=== PATIENT | male | born 1985 | race Caucasian/White ===

== ENCOUNTER 2018-11-20 18:14 | Emergency (ER) | payer OTHER ==
[2018-11-20 18:25] VITALS: BP 140/76
[2018-11-20] MEDS ORDERED: OSELTAMIVIR 75 MG CAPSULE PO STA (19:18)
--- NOTE | 2018-11-20 19:22 | ED Physician Documentation ---
PD HPI PED ILLNESS - Stated complaint Stated Complaint: FLU LIKE SYMPTOMS - Chief complaint Chief Complaint: Heent - History obtained from History obtained from: Patient - History of Present Illness Timing - onset: Today (He abruptly became sick today with fever, slight cough, and severe body aches.) Review of Systems Constitutional: reports: Fever, Chills, Myalgias, Fatigue Nose: denies: Rhinorrhea / runny nose Respiratory: reports: Cough GI: denies: Abdominal Pain, Nausea, Vomiting PD PAST MEDICAL HISTORY - Past Medical History Past Medical History: Yes GI: GERD - Past Surgical History Past Surgical History: No - Present Medications Home Medications: Ambulatory Orders Medication Instructions Recorded Confirmed Omeprazole 20 mg PO 11/20/18 11/20/18 Oseltamivir [Tamiflu] 75 mg PO BID #10 capsule 11/20/18 - Allergies Allergies/Adverse Reactions: Allergies Allergy/AdvReac Type Severity Reaction Status Date / Time tetracycline Allergy Hives Verified 11/20/18 18:26 - Social History Does the pt smoke?: No Smoking Status: Never smoker Does the pt drink ETOH?: No Does the pt have substance abuse?: No - Immunizations Immunizations are current?: Yes PD ED PE NORMAL - Vitals Vital signs reviewed: Yes - General General: Alert and oriented X 3, No acute distress - HEENT HEENT: PERRL, EOMI, Pharynx benign - Neck Neck: Supple, no meningeal sign, No bony TTP - Cardiac Cardiac: RRR, No murmur - Respiratory Respiratory: Clear bilaterally - Abdomen Abdomen: Non tender - Derm Derm: No rash - Neuro Neuro: Alert and oriented X 3, Normal speech Results - Vitals Vitals: Vital Signs - 24 hr 11/20/18 18:23 Temperature 37.0 C Heart Rate 79 Respiratory 14 Rate Blood Pressure 140/76 H O2 Saturation 99 Oxygen O2 Source Room air - Labs Labs: Laboratory Tests 11/20/18 18:30 Influenza A (Rapid) Negative Influenza B (Rapid) Negative PD MEDICAL DECISION MAKING - ED course ED course: Given the out ongoing flu outbreak and typical symptoms I suspect the flu test is false negative. Departure - Departure Disposition: 01 Home, Self Care Clinical Impression: Influenza A Condition: Good Record reviewed to determine appropriate education?: Yes Instructions: Medication: Tamiflu (Oseltamivir), ED Flu Prescriptions: Oseltamivir [Tamiflu] 75 mg PO BID #10 capsule Comments: Return in 5 days if not better, or if worse any time. Forms: Activity restrictions
== END 2018-11-20 19:24 | disposition home or self-care (01) ==
LOC: ED 18:14
DX: J10.89 Influenza due to other identified influenza virus with other manifestations (principal)
CPT/HCPCS: 87275; 87276; 99283; A9270

== ENCOUNTER 2019-02-07 08:41 | Emergency (ER) | payer OTHER ==
[2019-02-07 09:09] VITALS: BP 137/94
[2019-02-07] MEDS ORDERED: KETOROLAC 60 MG/2 ML VIAL IM STA (10:14)
[2019-02-07] MEDS ORDERED: CHERRY SYRUP 10 ML UDC PO ONE (10:14)
[2019-02-07] MEDS ORDERED: DEXAMETHASONE 10 MG/ML VIAL PO STA (10:14)
--- NOTE | 2019-02-07 10:17 | ED Physician Documentation ---
PD HPI BACK PAIN - Stated complaint Stated Complaint: LOWER BACK PX - Chief complaint Chief Complaint: Back Pain - History obtained from History obtained from: Patient - History of Present Illness Timing - onset: Yesterday Timing - duration: Days (1) Timing - details: Abrupt onset, Still present Location: Lower, Left Quality: Pain, Spasm, Sharp, Similar to prior episodes Associated symptoms: No: Fever, Weakness, Numbness, Incontinent of urine, Unable to urinate, Hematuria, Incontinent of stool Improves with: Rest, Position Worsened by: Movement, Other (walking) Contributing factors: Other (slipped on a deck yesterday and caught himself jarring his back) Similar symptoms before: Diagnosis (lumbar strain) Recently seen: Not recently seen - Additional information Additional information: 33-year-old male slipped on his deck yesterday and [place] himself he has pain in his left lower back that radiates down the left side when he bears weight. He has had similar symptoms previously. Review of Systems Constitutional: denies: Fever, Chills Ears: denies: Ear pain Throat: denies: Sore throat Respiratory: denies: Cough GI: denies: Vomiting : denies: Dysuria, Frequency Skin: denies: Rash Musculoskeletal: reports: Back pain. denies: Neck pain, Extremity pain PD PAST MEDICAL HISTORY - Past Medical History GI: GERD - Past Surgical History Past Surgical History: No - Present Medications Home Medications: Ambulatory Orders Medication Instructions Recorded Confirmed Omeprazole 20 mg PO 11/20/18 11/20/18 Oseltamivir [Tamiflu] 75 mg PO BID #10 capsule 11/20/18 Cyclobenzaprine [Flexeril] 10 mg PO TID PRN #20 tablet 02/07/19 Hydrocodone/Acetaminophen 1 - 2 each PO Q6H PRN #14 tablet 02/07/19 [Hydrocodon-Acetaminophen 5-325] - Allergies Allergies/Adverse Reactions: Allergies Allergy/AdvReac Type Severity Reaction Status Date / Time tetracycline Allergy Hives Verified 02/07/19 09:40 - Social History Does the pt smoke?: No Smoking Status: Never smoker Does the pt drink ETOH?: No ETOH Use: Beer Does the pt have substance abuse?: No - Immunizations Immunizations are current?: Yes PD ED PE NORMAL - Vitals Vital signs reviewed: Yes (hypertensive ) - General General: Alert and oriented X 3, No acute distress, Well developed/nourished - HEENT HEENT: Atraumatic, PERRL, EOMI - Respiratory Respiratory: No respiratory distress - Back Back: No CVA TTP, No spinal TTP, Other (point tenderness to the left lower lumbar spine extending into the sciatic notch. 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 He is admitted administered dexamethasone 10 orally and Toradol [address] will place him on some pain medication and muscle relaxant. Departure - Departure Disposition: 01 Home, Self Care Clinical Impression: Sciatica Qualifiers: Laterality: left Qualified Code(s): M54.32 - Sciatica, left side Condition: Stable Instructions: ED Sciatica Follow-Up: [facility] [Provider Group] Prescriptions: Cyclobenzaprine [Flexeril] 10 mg PO TID PRN #20 tablet PRN Reason: Spasms Hydrocodone/Acetaminophen [Hydrocodon-Acetaminophen 5-325] 1 - 2 each PO Q6H PRN #14 tablet PRN Reason: pain
== END 2019-02-07 10:26 | disposition home or self-care (01) ==
LOC: ED 08:41
DX: M54.42 Lumbago with sciatica, left side (principal); X50.1XXA Overexertion from prolonged static or awkward postures, initial encounter; Y92.008 Other place in unspecified non-institutional (private) residence as the place of occurrence of the external cause
CPT/HCPCS: 96372; 99283

== ENCOUNTER 2019-02-09 13:55 | Emergency (ER) | payer OTHER ==
[2019-02-09] MEDS ORDERED: predniSONE 20 MG TABLET PO STA (14:20)
--- NOTE | 2019-02-09 14:47 | ED Physician Documentation ---
PD HPI BACK PAIN - Stated complaint Stated Complaint: BACK PAIN/NUMBNESS BILAT FEET AND R HAND - Chief complaint Chief Complaint: Back Pain - History obtained from History obtained from: Patient - History of Present Illness Timing - onset: How many days ago (2) Timing - duration: Days (2) Timing - details: Abrupt onset Pain level max: 8 Pain level now: 8 Location: Lower, Right, Left Quality: Pain, Spasm, Similar to prior episodes Associated symptoms: Numbness (numbness and shooting pain down B legs to the toes.). No: Fever, Weakness, Incontinent of urine, Unable to urinate, Hematuria, Incontinent of stool Improves with: Rest Worsened by: Movement Contributing factors: Other (states slipped and [place] his back a few days ago. Not improving at home.) Recently seen: Emergency Dept (for same) - Additional information Additional information: also states the his R hand, nose and lips tingled today. No loss of bowel or bladder control. no difficulty urinating. Review of Systems Constitutional: denies: Fever, Chills Respiratory: denies: Cough GI: denies: Vomiting Skin: denies: Rash Musculoskeletal: denies: Neck pain PD PAST MEDICAL HISTORY - Past Medical History Past Medical History: Yes GI: GERD - Past Surgical History Past Surgical History: No - Present Medications Home Medications: Ambulatory Orders Medication Instructions Recorded Confirmed Omeprazole 20 mg PO DAILY 11/20/18 02/09/19 Cyclobenzaprine [Flexeril] 10 mg PO TID PRN #20 tablet 02/07/19 02/09/19 Hydrocodone/Acetaminophen 1 - 2 each PO Q6H PRN #14 tablet 02/07/19 02/09/19 [Hydrocodon-Acetaminophen 5-325] Meloxicam [Mobic] 15 mg PO DAILY PRN #20 tablet 02/09/19 predniSONE [Deltasone] 10 mg PO [id number] #42 tab 02/09/19 - Allergies Allergies/Adverse Reactions: Allergies Allergy/AdvReac Type Severity Reaction Status Date / Time tetracycline Allergy Hives Verified 02/09/19 14:01 - Living Situation Living Situation: reports: With family Living Arrangement: reports: At home - Social History Does the pt smoke?: No Smoking Status: Never smoker Does the pt drink ETOH?: No Does the pt have substance abuse?: No - Immunizations Immunizations are current?: Yes PD ED PE NORMAL - Vitals Vital signs reviewed: Yes - General General: Alert and oriented X 3, No acute distress, Well developed/nourished - HEENT HEENT: Moist mucous membranes - Neck Neck: Supple, no meningeal sign - Cardiac Cardiac: RRR, Strong equal pulses - Respiratory Respiratory: No respiratory distress, Clear bilaterally - Abdomen Abdomen: Soft, Non tender, Non distended - Back Back: Other (Midline tender to palpation L4-L5. No step-off or deformity. Also tender over the sacrum.) - Derm Derm: Warm and dry - Extremities Extremities: No deformity, Other (Normal bilateral lower extremity patellar and ankle jerk reflexes. Normal great toe extension bilaterally. no saddle anesthesia) - Neuro Neuro: Alert and oriented X 3, No motor deficit, Other (Decreased sensation on the posterior aspect of the bilateral lower extremities. Mild) - Psych Psych: Normal mood, Normal affect Results - Vitals Vitals: Vital Signs - 24 hr 02/09/19 02/09/19 13:59 15:18 Temperature 36.0 C L Heart Rate 97 85 Respiratory 20 20 Rate Blood Pressure 124/78 123/74 O2 Saturation 99 96 Oxygen O2 Source Room air - Rads (name of study) CT lumbar spine Radiology: Prelim report reviewed, EMP read contemporaneously, See rad report (normal) PD MEDICAL DECISION MAKING - ED course Complexity details: reviewed results, re-evaluated patient, considered differential (No cauda equina, no spinal epidural abscess, no fracture, no aortic dissection or evidence of aneursym rupture), d/w patient ED course: 33-year-old male with continued back pain since being seen here 2 days ago, was placed on pain medication and muscle relaxants. Was also given a one-time dose of steroid. Given his worsening symptoms, bilateral intermittent numbness to the legs, a CT was performed. This does not show any acute abnormalities. No cord compression. Patient is able to ambulate in the emergency department. Declines anything stronger for pain for home. Will place on meloxicam and a steroid taper. Patient counseled regarding signs and symptoms for which I believe and urgent re-evaluation would be necessary. Patient with good und erstanding of and agreement to plan and is comfortable going home at this time This document was made in part using voice recognition software. While efforts are made to proofread this document, sound alike and grammatical errors may occur. Departure - Departure Disposition: 01 Home, Self Care Clinical Impression: Sciatica Qualifiers: Laterality: bilateral Qualified Code(s): M54.31 - Sciatica, right side Condition: Good Instructions: ED Sciatica Follow-Up: your,doctor in 1week [Other] Prescriptions: Meloxicam [Mobic] 15 mg PO DAILY PRN #20 tablet PRN Reason: pain predniSONE [Deltasone] 10 mg PO [id number] #42 tab Comments: Continue your other medications. Return if you worsen. If you are still having problems in 1 week, you should follow-up with your doctor for an MRI. Discharge Date/Time: 02/09/19 15:19
--- NOTE | 2019-02-09 15:01 | CT Report ---
Reason: fall, back pain radiating down B LE. Procedure Date: 02/09/2019 Accession Number: [id number] / [id number] Procedure: CT - LUMBAR SPINE WO CPT Code: FULL RESULT: EXAM: CT LUMBAR SPINE WITHOUT CONTRAST EXAM DATE: 02/09/2019 02:34 PM. CLINICAL HISTORY: Fall 2 days ago, back pain radiating down bilateral lower extremities. COMPARISONS: None. TECHNIQUE: Thin-section axial images were acquired of the lumbar spine from T11 to S1 without contrast. Post-processing: Coronal and sagittal reformats. Other: None. In accordance with CT protocol optimization, one or more of the following dose reduction techniques were utilized for this exam: automated exposure control, adjustment of mA and/or KV based on patient size, or use of iterative reconstructive technique. FINDINGS: Alignment: No scoliosis or spondylolisthesis. Bones: Five [id number] lumbar vertebral bodies are present. No fractures or bone lesions. Disk Levels/Facets: T12-L1: Unremarkable. L1-L2: Unremarkable. L2-L3: Unremarkable. L3-L4: Unremarkable. L4-L5: Unremarkable. L5-S1: Unremarkable. Musculature: Normal. No fatty atrophy. Other: The visualized retroperitoneum is unremarkable. IMPRESSION: Normal lumbar spine CT. No fracture or other acute osseous abnormality. RADIA
[2019-02-09 15:19] VITALS: BP 123/74
== END 2019-02-09 15:19 | disposition home or self-care (01) ==
LOC: ED 13:55
DX: M54.41 Lumbago with sciatica, right side (principal)
CPT/HCPCS: 72131; 99283; J7512

== ENCOUNTER 2020-07-01 17:54 | Emergency (ER) | payer OTHER ==
[2020-07-01 18:00] VITALS: BP 140/87
--- NOTE | 2020-07-01 18:50 | XRAY Report ---
PROCEDURE: Shoulder 3 View RT INDICATIONS: pain/trauma TECHNIQUE: 3 views of the shoulder were acquired. COMPARISON: None. FINDINGS: Bones: No fractures or dislocations. No suspicious bony lesions. Visualized ribs appear intact. Soft tissues: No suspicious soft tissue calcifications. IMPRESSION: No acute right shoulder fracture or dislocation. Reviewed by: Matt Roman MD on 07/01/2020 6:49 PM PDT Approved by: Matt Roman MD on 07/01/2020 6:49 PM PDT Station ID: [id number]
--- NOTE | 2020-07-01 19:04 | ED Physician Documentation ---
History of Present Illness - Stated complaint Stated Complaint: RIGHT SHOULDER PX - Chief complaint Chief Complaint: Ext Problem - Additonal information Additional information: 34-year-old male presents to the emergency department for evaluation of acute right shoulder pain sustained this afternoon when he was doing a hand stand. He lost his balance and fell forward onto the right shoulder and has had pain since. No history of previous injury. Patient is right-handed Review of Systems Constitutional: reports: Reviewed and negative Eyes: reports: Reviewed and negative Ears: reports: Reviewed and negative Nose: reports: Reviewed and negative Throat: reports: Reviewed and negative Cardiac: reports: Reviewed and negative Respiratory: reports: Reviewed and negative GI: reports: Reviewed and negative Skin: reports: Reviewed and negative Musculoskeletal: reports: Joint pain ( right shoulder) Neurologic: reports: Reviewed and negative PD PAST MEDICAL HISTORY - Past Medical History Past Medical History: No GI: GERD - Past Surgical History Past Surgical History: No - Present Medications Home Medications: Ambulatory Orders Medication Instructions Recorded Confirmed Ibuprofen [Motrin] 600 mg PO Q6H PRN #30 tab 07/01/20 - Allergies Allergies/Adverse Reactions: Allergies Allergy/AdvReac Type Severity Reaction Status Date / Time tetracycline Allergy Hives Verified 07/01/20 17:59 - Social History Does the pt smoke?: No Smoking Status: Never smoker Does the pt drink ETOH?: No Does the pt have substance abuse?: No - Immunizations Immunizations are current?: Yes PD ED PE NORMAL - General General: Alert and oriented X 3, No acute distress - Extremities Extremities: No deformity, Normal ROM s pain. No: No tenderness to palpate (Mild tenderness at the right AC joint. Full range of motion with minimal pain. Negative yearganson's and empty can. No swelling or ecchymosis.) Results - Vitals Vitals: Vital Signs - 24 hr 07/01/20 17:56 Temperature 36.7 C Heart Rate 65 Respiratory 15 Rate Blood Pressure 140/87 H O2 Saturation 100 Oxygen O2 Source Room air - Rads (name of study) right shoulder Radiology: Final report received (No acute fracture or dislocation) PD MEDICAL DECISION MAKING - ED course Complexity details: reviewed results, considered differential ED course: 34-year-old male presents the emergency department with right shoulder injury sustained this afternoon when he fell after doing a hand stand. X-ray does not show any fracture or dislocation. The majority the pain is at the AC joint but no AC separation is seen. He has a very reassuring exam with no impingement signs. This likely a contusion. I did recommend that he take ibuprofen with food 3 times a day for the next week. Follow-up with primary care provider if not improving as anticipated Departure - Departure Disposition: Home, Self Care Clinical Impression: Right shoulder pain Qualifiers: Chronicity: acute Qualified Code(s): M25.511 - Pain in right shoulder Condition: Stable Record reviewed to determine appropriate education?: Yes Prescriptions: Ibuprofen [Motrin] 600 mg PO Q6H PRN #30 tab PRN Reason: Pain Comments: The x-ray of your shoulder is normal. On my exam today you do not show signs of having a rotator cuff tear. I do recommend that you avoid handstands for the next week or 2. I also recommend that you take ibuprofen with food 3 times a day for the next 5 to 7 days. With a simple contusion or sprain of the shoulder I would expect you to be pain-free in about 2 weeks. If not improving please see your primary care doctor for further evaluation and follow-up which could include physical therapy or more advanced imaging.
== END 2020-07-01 19:17 | disposition home or self-care (01) ==
LOC: ED 17:54
DX: M25.511 Pain in right shoulder (principal); S49.91XA Unspecified injury of right shoulder and upper arm, initial encounter; W18.39XA Other fall on same level, initial encounter; Y93.B9 Activity, other involving muscle strengthening exercises; Y93.B2 Activity, push-ups, pull-ups, sit-ups
CPT/HCPCS: 99283